=== PATIENT | male | born 1985 | race Caucasian/White ===

== ENCOUNTER 2021-05-10 20:30 | Emergency (ER) | payer BC ==
[2021-05-10] MEDS ORDERED: Bacitracin 1 PK ONE (21:14)
== END 2021-05-10 21:25 | disposition home or self-care (01) ==
LOC: CSHERS 20:30
DX: S90.571A Other superficial bite of ankle, right ankle, initial encounter (principal); K74.60 Unspecified cirrhosis of liver; W54.0XXA Bitten by dog, initial encounter
CPT/HCPCS: 99283